=== PATIENT | female | born 1990 | race Caucasian/White ===

== ENCOUNTER → 2020-08-01 | Outpatient (CLI) | payer OTHER ==
[~2020-08-01] MED LIST: BENTYL 20MG TAB20 MG PO; IRON325 M1 PO; LANSOPRAZOLE30 MG PO; LODINE CAP 300300 MG PO; PEPCID20 MG PO; ZOFRAN ODT 4 MG4 MG PO
== END ==
LOC: EXRD 08:30
DX: R10.9 Unspecified abdominal pain (principal); K80.20 Calculus of gallbladder without cholecystitis without obstruction
CPT/HCPCS: 76700